=== PATIENT | male | born 1995 | race Caucasian/White ===

== ENCOUNTER 2017-11-25 09:31 | Emergency (ER) | payer SELFPAY ==
[2017-11-25 10:21] VITALS: BP 125/88
--- NOTE | 2017-11-25 10:59 | UC ---
Abdominal Pain Male HPI - HPI Summary HPI Summary: LUQ ABDOMINAL PAIN X 5 DAYS SENSITIVE SKIN AT [facility] , HAD SORE THROAT 3 WEEKS AGO , BETTER, NO , HAS BEEN HAVING FATIGUE, DECREASE APPETITE , CONCERN ABOUT MONO DRY FLAT RASH LEFT FLANK AREA, MILD ITCH - History of Current Complaint Chief Complaint: UCGeneralIllness Stated Complaint: STOMACH ACHE,ST,SKIN COMPLAINT Time Seen by Provider: 11/25/17 10:22 Hx Obtained From: Patient Onset/Duration: Gradual Onset, Lasting Days - 5, Still Present Timing: Constant Severity Initially: Moderate Severity Currently: Moderate Pain Intensity: 5 Location: Discrete At: LUQ Radiates: No Character: Aching Aggravating Factor(s): Nothing Alleviating Factor(s): Nothing Associated Signs And Symptoms: Negative: Diaphoresis, Fever, Cough, Chest Pain, Dizzy, Back Pain, Urinary Symptoms, Decreased Appetite, Nausea, Vomiting, Diarrhea, Penile Discharge - Allergies/Home Medications Allergies/Adverse Reactions: Allergies Allergy/AdvReac Type Severity Reaction Status Date / Time No Known Allergies Allergy Verified 11/25/17 10:14 PMH/Surg Hx/FS Hx/Imm Hx Previously Healthy: Yes - Surgical History Surgical History: Yes Surgery Procedure, Year, and Place: cleft lip and cleft pallete - Family History Known Family History: Negative: Diabetes - Social History Alcohol Use: Occasionally Substance Use Type: None Smoking Status (MU): Never Smoked Tobacco Review of Systems Constitutional: Negative Skin: Rash Eyes: Negative ENT: Sore Throat Cardiovascular: Negative Gastrointestinal: Abdominal Pain Is Patient Immunocompromised?: No All Other Systems Reviewed And Are Negative: Yes Physical Exam Triage Information Reviewed: Yes Appearance: Well-Appearing, No Pain Distress, Well-Nourished Vital Signs: Initial Vital Signs Temp 99.1 F 11/25/17 10:09 Pulse 95 11/25/17 10:09 Resp 18 11/25/17 10:09 BP 125/88 11/25/17 10:09 Pulse Ox 98 11/25/17 10:09 Vital Signs Reviewed: Yes Eyes: Positive: Conjunctiva Clear ENT: Positive: Normal ENT inspection, Hearing grossly normal, Pharynx normal Neck exam: Normal Neck: Positive: Supple, Nontender, No Lymphadenopathy Respiratory: Positive: Chest non-tender, Lungs clear, Normal breath sounds Cardiovascular Exam: Normal Cardiovascular: Positive: RRR, No Murmur, Pulses Normal, Brisk Capillary Refill Abdominal Exam: Normal Abdomen Description: Positive: Nontender, No Organomegaly, Soft. Negative: CVA Tenderness (R), CVA Tenderness (L), Distended, Guarding Bowel Sounds: Positive: Present Abd Pain Male Course/Dx - Course Course Of Treatment: CONCERN ABOUT MONO. WILL CHECK FOR MONOSPOT - Differential Dx/Clinical Impression Provider Diagnoses: ABDOMINAL PAIN. RING WARM Discharge - Sign-Out/Discharge Documenting (check all that apply): Discharge - Discharge Plan Condition: Stable Disposition: HOME Prescriptions: Ketoconazole 2 % CREAM (NF) [Nizoral 2% CREAM (NF)] 1 applic TOPICAL BID 14 Days #60 gm Patient Education Materials: Tinea Corporis (ED), Acute Abdominal Pain (ED) Referrals: No Primary Care Phys,NOPCP [Primary Care Provider] - 7 Days - Billing Disposition and Condition Condition: STABLE Disposition: HOME
--- NOTE | 2017-11-26 08:14 | UC ---
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
== END 2017-11-25 11:10 | disposition home or self-care (01) ==
LOC: UCCORT 09:31
DX: R10.32 Left lower quadrant pain (principal); B35.9 Dermatophytosis, unspecified
CPT/HCPCS: 36415; 86308; 86664; 86665; 99202; G0463

== ENCOUNTER 2019-02-21 15:07 | Emergency (ER) | payer OTHER ==
[2019-02-21 15:20] VITALS: BP 128/65
[2019-02-21] MEDS ORDERED: Tetan/Diph/Pertus SYR(Tdap)* 0.5 ML SYR(BOOSTRIX) use SYR IM ONE (16:08)
--- NOTE | 2019-02-21 16:09 | UC ---
Skin Complaint HPI - HPI Summary HPI Summary: 23 y/o male presents to the urgent care c/o discrete puncture wound in middle phalanx of his left index finger w/ a steel cable yesterday. Pt reports he was helping his dad at the farm to carry some tree branches w/ a steel cable when he felt a piece got through his finger. He irrigated w/ water and applied topical antibiotic ointment. Pain is 2/10 at touch. This morning he noticed it was mildly swollen and painful to bend it. He is not UTD w/ Tetanus vaccines.It was given in 2011. Pt denies fever, Hx of MRSA, SOB, chest pain, numbness or tingling sensation over the finger or hand, abdominal pain, N/V/D. - History of Current Complaint Chief Complaint: UCWounds Time Seen by Provider: 02/21/19 15:43 Stated Complaint: LEFT INDEX FINGER ISSUE Hx Obtained From: Patient Onset/Duration: Sudden Onset, Lasting Days - 1 day, Still Present, Worse Since - today w/ swelling and pain Skin Exposure Onset/Duration: Days Ago - 1 day Timing: Constant Onset Severity: Mild Current Severity: Mild Pain Intensity: 2 - at touch Pain Scale Used: 0-10 Numeric Location: Discrete - left index middle phalanx pucture wound w/ a steel cable Character: Swelling - mild, Pain, Redness Aggravating Factor(s): Touch Alleviating Factor(s): OTC Meds, OTC Creams/Salves Associated Signs & Symptoms: Positive: Rash - puncture wound w/ a steel cable at the left middle phalanx index finger w/ redness and mild swelling. Negative : Fever, Chills Related History: Other: - puncture wound w/ a steel metal strand - Allergy/Home Medications Allergies/Adverse Reactions: Allergies Allergy/AdvReac Type Severity Reaction Status Date / Time No Known Allergies Allergy Verified 02/21/19 15:20 PMH/Surg Hx/FS Hx/Imm Hx Previously Healthy: Yes - Pt denies PMHX - Surgical History Surgical History: Yes Surgery Procedure, Year, and Place: cleft lip and cleft pallete - Family History Known Family History: Positive: None - Pt denies FMHX Negative: Diabetes - Social History Occupation: Employed Full-time Lives: With Family Alcohol Use: Weekly Substance Use Type: None Smoking Status (MU): Never Smoked Tobacco - Immunization History Most Recent Tetanus Shot: summer Hx Tetanus, Diphtheria Vaccination: No Review of Systems All Other Systems Reviewed And Are Negative: Yes Constitutional: Positive: Negative Skin: Positive: Rash - puncture wound w/ a steel cable at the left middle phalanx index finger w/ redness and mild swelling Eyes: Positive: Negative ENT: Positive: Negative Respiratory: Positive: Negative Cardiovascular: Positive: Negative Gastrointestinal: Positive: Negative Genitourinary: Positive: Negative Motor: Positive: Negative Neurovascular: Positive: Negative Musculoskeletal: Positive: Decreased ROM - left index finger, Other: - left index finger Neurological: Positive: Negative Psychological: Positive: Negative Is Patient Immunocompromised?: No Physical Exam - Summary Physical Exam Summary: Vital Signs Reviewed: Yes General: well appearing, well nourished male in no acute apparent pain distress , sitting comfortably on examining table Eye Exam: Normal Eyes: Positive: Conjunctiva Clear - PERRLA< EOMI, fundi grossly normal ENT: Positive: Normal ENT inspection, Hearing grossly normal, Pharynx normal, TMs normal Neck: Positive: Supple, Nontender, No Lymphadenopathy Respiratory: Positive: Chest non-tender, Lungs clear, Normal breath sounds, No respiratory distress Cardiovascular: Positive: RRR, No Murmur, Pulses Normal, Brisk Capillary Refill Abdomen Description: Positive: Nontender, No Organomegaly, Soft. Negative: CVA Tenderness (R), CVA Tenderness (L) Bowel Sounds: Positive: Present Musculoskeletal: Positive: Strength Intact, ROM Intact, No Edema Neurological: Positive: Alert, Muscle Tone Normal Psychological Exam: Normal Skin: Positive: Positive discrete puncture wound at the palmar side of the middle phalanx of the left index finger, mild erythema and soft tissue swelling observed, mild tenderness to palpation, no drainage observed. Decrease flexion of left index finger. pulses WNL, capillary refill brisk, sensation WNL. Triage Information Reviewed: Yes Vital Signs: Initial Vital Signs Temp 99.3 F 02/21/19 15:14 Pulse 83 02/21/19 15:14 Resp 16 02/21/19 15:14 BP 128/65 02/21/19 15:14 Pulse Ox 98 02/21/19 15:14 Course/Dx - Course Course Of Treatment: 23 y/o male presents to the urgent care c/o discrete puncture wound in middle phalanx of his left index finger w/ a steel cable yesterday. Pt reports he was helping his dad at the farm to carry some tree branches w/ a steel cable when he felt a piece got through his finger. He irrigated w/ water and applied topical antibiotic ointment. Pain is 2/10 at touch. This morning he noticed it was mildly swollen and painful to bend it. He is not UTD w/ Tetanus vaccines.It was given in 2011. Pt denies fever, Hx of MRSA, SOB, chest pain, numbness or tingling sensation over the finger or hand, abdominal pain, N/V/D. Hx obtained. Pt w/ Positive discrete puncture wound at the palmar side of the middle phalanx of the left index finger, mild erythema and soft tissue swelling observed, mild tenderness to palpation, no drainage observed. Decrease flexion of left index finger. pulses WNL, capillary refill brisk, sensation WNL on examination. Left index finger X-ray ordered to r/o FB. Impression:There is diffuse soft tissue swelling. The bones are normal alignment. No fracture is seen. There is a tiny less than 1 mm in size punctate calcific or metallic density which projects along the lateral anterior soft tissues at the level of the tuft of the distal phalanx possibly representing a foreign body as per radiologist. However puncture wound is in the middle phalanx and not the distal. Pt explained [facility]adilogy report and he states probably old FB. Pt's symptoms discussed w/ DR Guillaume who recommends PO antibiotics. Pt Rx Augmentin PO, Bacitrain oint as directed below. Wound cleared w/ iodine swabs and bacitrain oint applied and covered w/ sterile dressing by me. Advised If redness and swelling doubles in size after 48 hrs of taking antibiotic and fever develops please go to the ER immediately. D/C instructions explained. Pt understood and agreed with D/C instructions. - Differential Diagnoses - Skin Complaint Differential Diagnoses: Abscess, Cellulitis, Local Allergic Reaction, MRSA - Diagnoses Provider Diagnosis: Puncture wound of left index finger Discharge - Sign-Out/Discharge Documenting (check all that apply): Patient Departure - D/C home All imaging exams completed and their final reports reviewed: No Studies - Discharge Plan Condition: Stable Disposition: HOME Prescriptions: Amoxicillin/Clavulanate TAB* [Augmentin TAB 875*] 875 mg PO BID #20 tab Bacitracin OINTMENT* 1 applic TOPICAL BID #1 tube Patient Education Materials: Puncture Wound (ED) Referrals: [facility] [place] [facility]ERR[facility] [Outside] - 3 Days Additional Instructions: 1-Please take full course of Antibiotic as directed. Take yogurts w/ probiotic or Cuturelle to protect your GI system. 2- If redness and swelling doubles in size after 48 hrs of taking antibiotic and fever develops please go to the ER immediately. Otherwise f/u w/ your PCP if 3 days if not improvement of symptoms. 3- keep wound clean and dry. Apply bacitracin oint as directed. Avoid too much flexion of the left index to decrease swelling - Billing Disposition and Condition Condition: STABLE Disposition: Home
== END 2019-02-21 16:22 | disposition home or self-care (01) ==
LOC: UCCORT 15:07
DX: S61.231A Puncture wound without foreign body of left index finger without damage to nail, initial encounter (principal); X58.XXXA Exposure to other specified factors, initial encounter; Y93.89 Activity, other specified; Y92.79 Other farm location as the place of occurrence of the external cause
CPT/HCPCS: 73140; 90471; 90715; 99212; G0463